=== PATIENT | female | born 1970 ===

== ENCOUNTER 2021-10-24 05:15 | Inpatient (IN) | payer BC, OTHER ==
[~2021-10-24] VITALS: Ht 170.2 cm; Wt 96.4 kg
[2021-10-24 08:42] LABS: Basophils # (auto) 0 10 ^3/uL (0-0.2); Basophils % (auto) 0.2 % (0.0-2.0); Eosinophils # (auto) 0.1 10 ^3/uL (0-0.8); Eosinophils % (auto) 0.8 % (0.0-7.0); Hematocrit 43.4 % (36.0-46.0); Hemoglobin 13.9 g/dL (12.2-16.2); Lymphocytes # (auto) 0.3 10 ^3/uL (0.4-5.4); Lymphocytes % (auto) 3.7 % (10.0-50.0); Mean Corpuscular Hemoglobin 29.4 pg (28.0-32.0); Mean Corpuscular Volume 91.9 fL (80.0-100.0); Monocytes # (auto) 0.3 10 ^3/uL (0-1.3); Monocytes % (auto) 4.4 % (0.0-12.0); Neutrophils # (auto) 6.5 10 ^3/uL (1.6-8.6); Neutrophils % (auto) 90.9 % (37.0-80.0); Red Blood Cells 4.72 10^6/uL (4.0-5.20); Red Cell Distribution Width 13.9 % (11.8-14.3); White Blood Cell 7.2 10^3/uL (4.4-10.8)
[2021-10-24 08:52] LABS: Albumin 3.6 g/dL (3.4-5.0); Calcium 8.3 mg/dL (8.5-10.1); Magnesium 2.9 mg/dL (1.6-2.6); Potassium 3.8 mmol/L (3.5-5.1)
[2021-10-24 08:58] LABS: BUN/Creatinine Ratio 33.8; Bilirubin, Total 0.5 mg/dL (0.2-1.0); Total Protein 6.4 g/dL (6.4-8.2)
[2021-10-24] MEDS ORDERED: HYDROmorphone HCL 2 MG/ML VL IV ONE (12:00)
[2021-10-24] MEDS ORDERED: AZITHROMYCIN 500MG/ 250ML 250 ML IV ONE (13:30)
[2021-10-24] MEDS ORDERED: cefTRIAXone 1GM/50ML D5W 50 ML IV ONE (13:30)
[2021-10-24 14:13] LABS: Urine Bacteria FEW /hpf (None Seen); Urine Blood Negative /uL (Negative); Urine Mucus FEW (None Seen); Urine WBC 28 /hpf (0 - 5)
[2021-10-24] MEDS ORDERED: MORPHINE SULFATE INJECTION 2 MG/ML SYRG IV PRN (14:15)
[2021-10-24] MEDS ORDERED: NITROGLYCERIN 0.4 MG SL TAB SL PRN (14:15)
[2021-10-24] MEDS ORDERED: PIPERACILLIN-TAZOB 3.375GM 100 ML IV ONE (14:15)
[2021-10-24] MEDS ORDERED: ACETAMINOPHEN 500 MG TAB PO PRN (14:45)
[2021-10-24] MEDS ORDERED: LACTULOSE 20Gm/30ML SOLN PO PRN (14:45)
[2021-10-24] MEDS ORDERED: TEMAZEPAM 15 MG CAP PO PRN (14:45)
[2021-10-24] MEDS ORDERED: PROMETHAZINE HCL 25 MG/ML 1ML IV PRN (14:45)
[2021-10-24] MEDS ORDERED: traMADol HCL 50 MG TAB PO PRN (14:45)
[2021-10-24] MEDS ORDERED: ALBUTEROL SULF 2.5 MG/0.5ML(0.5%) NEB SOLN NEB PRN (14:45)
[2021-10-24] MEDS ORDERED: BUDESONIDE (INHALATION) 0.5 MG/2 ML NEB NEB ONE (16:30)
[2021-10-24] MEDS: SODIUM CHLORIDE 0.9% 1,000 ML IV SCH (18:14)
[2021-10-24] MEDS: ALBUTEROL SULF 2.5 MG/0.5ML(0.5%) NEB SOLN NEB SCH (19:25)
[2021-10-24] MEDS: IPRATROPIUM BROM 0.5 MG/2.5ML INH SOL NEB SCH (19:25)
[2021-10-24] MEDS: LINEZOLID 600MG/300ML 300 ML IV SCH (20:30)
[2021-10-24] MEDS ORDERED: BUDESONIDE (INHALATION) 180 MCG IH IN SCH (22:00)
[2021-10-24 22:33] VITALS: BP 98/69
[2021-10-24] MEDS: PIPERACILLIN-TAZOB 3.375GM 100 ML IV SCH (22:49)
[2021-10-25] MEDS ORDERED: BUPR300T28 PO (00:58)
[2021-10-25] MEDS ORDERED: ALBU108A5 INH (00:58)
[2021-10-25] MEDS ORDERED: TRAZ-184 PO (00:58)
[2021-10-25] MEDS ORDERED: LEFL10TA17 PO (00:58)
[2021-10-25] MEDS ORDERED: FLUT1AER5 PO (00:58)
[2021-10-25] MEDS ORDERED: GALC120I SC (00:58)
[2021-10-25] MEDS ORDERED: DALF10TA3 PO (00:58)
[2021-10-25] MEDS ORDERED: CALC0.5C PO (00:58)
[2021-10-25] MEDS ORDERED: PHEN-1325 (00:58)
[2021-10-25] MEDS ORDERED: ATOR10TA52 PO (00:58)
[2021-10-25] MEDS ORDERED: ESCI-34 PO (00:58)
[2021-10-25] MEDS ORDERED: RIME75TA PO (00:58)
[2021-10-25] MEDS ORDERED: MYCO500T3 PO (00:58)
[2021-10-25] MEDS ORDERED: MIRA50TA PO (00:58)
[2021-10-25] MEDS ORDERED: TAPE200T PO (00:58)
[2021-10-25] MEDS ORDERED: PRE1T PO (00:58)
[2021-10-25] MEDS ORDERED: PANT40T PO (00:58)
[2021-10-25] MEDS ORDERED: PREG-111 PO (00:58)
[2021-10-25] MEDS ORDERED: CLON-853 PO (00:58)
[2021-10-25] MEDS ORDERED: FOLI1TAB6 PO (00:58)
[2021-10-25] MEDS: SODIUM CHLORIDE 0.9% 1,000 ML IV SCH ×2 (04:05→18:36)
[2021-10-25 05:16] VITALS: BP 95/66
[2021-10-25] MEDS: LINEZOLID 600MG/300ML 300 ML IV SCH ×2 (06:19→18:36)
[2021-10-25] MEDS: PIPERACILLIN-TAZOB 3.375GM 100 ML IV SCH ×3 (06:21→22:24)
[2021-10-25] MEDS: ALBUTEROL SULF 2.5 MG/0.5ML(0.5%) NEB SOLN NEB SCH ×4 (08:23→19:20)
[2021-10-25] MEDS: IPRATROPIUM BROM 0.5 MG/2.5ML INH SOL NEB SCH ×4 (08:23→19:20)
[2021-10-25 09:45] VITALS: BP 106/73
[2021-10-25] MEDS: predniSONE 1 MG TAB PO SCH (11:01)
[2021-10-25] MEDS: ASCORBIC ACID 1,000 MG TAB PO SCH (11:01)
[2021-10-25] MEDS: CHOLECALCIFEROL (VITD3) 2,000 UNIT CAP/TAB PO SCH (11:01)
[2021-10-25] MEDS: ZINC SULFATE 220mg CAP or TAB PO SCH (11:01)
[2021-10-25] MEDS: AZITHROMYCIN 500MG/ 250ML 250 ML IV SCH (11:01)
[2021-10-25] MEDS: ENOXAPARIN SOD 40 MG/0.4 ML SYRINGE SC SCH (11:01)
[2021-10-25 12:33] VITALS: BP 107/70
[2021-10-25] MEDS ORDERED: FOLIC ACID 1 MG TAB PO ONE (16:00)
[2021-10-25] MEDS ORDERED: CALCITRIOL 0.25 MCG CAP PO ONE (16:00)
[2021-10-25] MEDS ORDERED: PREGABALIN CAPSULE 75 MG CAP PO ONE (16:00)
[2021-10-25 16:26] VITALS: BP 102/66
[2021-10-25] MEDS: buPROPion HCL 75 MG TAB PO SCH (18:37)
[2021-10-25 21:13] VITALS: BP 117/78
[2021-10-25] MEDS: DALFAMPRIDINE 10 MG PO SCH (22:24)
[2021-10-25] MEDS: SALMETEROL IN SCH (22:24)
[2021-10-25] MEDS: FLUTICASONE PROPIONATE IN SCH (22:24)
[2021-10-25] MEDS: TAPENTADOL HCL 200 MG PO SCH (22:25)
[2021-10-25] MEDS: traZODone HCL 50 MG TAB PO SCH (22:25)
[2021-10-25] MEDS: PREGABALIN CAPSULE 75 MG CAP PO SCH (22:25)
[2021-10-25] MEDS: MYCOPHENOLATE 500 MG TAB PO SCH (22:25)
[2021-10-25] MEDS: ATORVASTATIN 20 MG TAB PO SCH (22:25)
[2021-10-26] MEDS: LINEZOLID 600MG/300ML 300 ML IV SCH ×2 (04:57→18:18)
[2021-10-26 05:11] VITALS: BP 96/60
[2021-10-26] MEDS: PREGABALIN CAPSULE 75 MG CAP PO SCH ×3 (05:11→22:13)
[2021-10-26] MEDS: PIPERACILLIN-TAZOB 3.375GM 100 ML IV SCH ×3 (06:08→22:11)
[2021-10-26] MEDS: SODIUM CHLORIDE 0.9% 1,000 ML IV SCH (06:08)
[2021-10-26] MEDS: IPRATROPIUM BROM 0.5 MG/2.5ML INH SOL NEB SCH ×4 (06:25→18:43)
[2021-10-26] MEDS: ALBUTEROL SULF 2.5 MG/0.5ML(0.5%) NEB SOLN NEB SCH ×4 (06:25→18:43)
[2021-10-26] MEDS: buPROPion HCL 75 MG TAB PO SCH ×2 (06:29→18:18)
[2021-10-26 06:33] LABS: Basophils # (auto) 0 10 ^3/uL (0-0.2); Basophils % (auto) 0.4 % (0.0-2.0); Eosinophils # (auto) 0.1 10 ^3/uL (0-0.8); Eosinophils % (auto) 2.3 % (0.0-7.0); Hematocrit 35.3 % (36.0-46.0); Hemoglobin 11.5 g/dL (12.2-16.2); Lymphocytes # (auto) 0.5 10 ^3/uL (0.4-5.4); Mean Corpuscular Hemoglobin 29.8 pg (28.0-32.0); Mean Corpuscular Hgb Conc. 32.6 g/dL (32.0-36.0); Mean Corpuscular Volume 91.7 fL (80.0-100.0); Monocytes # (auto) 0.3 10 ^3/uL (0-1.3); Monocytes % (auto) 8.8 % (0.0-12.0); Neutrophils # (auto) 2.7 10 ^3/uL (1.6-8.6); Neutrophils % (auto) 74.5 % (37.0-80.0); Red Blood Cells 3.85 10^6/uL (4.0-5.20); Red Cell Distribution Width 13.9 % (11.8-14.3); White Blood Cell 3.6 10^3/uL (4.4-10.8)
[2021-10-26 09:00] VITALS: BP 111/76
[2021-10-26] MEDS: FLUTICASONE PROPIONATE IN SCH ×2 (10:00→22:10)
[2021-10-26] MEDS ORDERED: DALFAMPRIDINE 10 MG PO SCH (10:00)
[2021-10-26] MEDS: SALMETEROL IN SCH ×2 (10:00→22:10)
[2021-10-26] MEDS ORDERED: HYDROcodone-ACET 7.5/325MG TAB PO PRN (10:15)
[2021-10-26] MEDS ORDERED: clonazePAM 0.5 MG TAB PO PRN (10:15)
[2021-10-26] MEDS: AZITHROMYCIN 500MG/ 250ML 250 ML IV SCH (12:28)
[2021-10-26] MEDS: DALFAMPRIDINE 10 MG PO SCH ×2 (12:29→22:11)
[2021-10-26] MEDS: ESCITALOPRAM OXALATE 20 MG PO SCH (12:29)
[2021-10-26] MEDS: FOLIC ACID 1 MG TAB PO SCH (12:29)
[2021-10-26] MEDS: LEFLUNOMIDE 10 MG PO SCH (12:29)
[2021-10-26] MEDS: ZINC SULFATE 220mg CAP or TAB PO SCH (12:30)
[2021-10-26] MEDS: CALCITRIOL 0.25 MCG CAP PO SCH (12:30)
[2021-10-26] MEDS: predniSONE 1 MG TAB PO SCH (12:30)
[2021-10-26] MEDS: MYCOPHENOLATE 500 MG TAB PO SCH ×2 (12:30→22:12)
[2021-10-26] MEDS: CHOLECALCIFEROL (VITD3) 2,000 UNIT CAP/TAB PO SCH (12:30)
[2021-10-26] MEDS: ASCORBIC ACID 1,000 MG TAB PO SCH (12:30)
[2021-10-26] MEDS: ENOXAPARIN SOD 40 MG/0.4 ML SYRINGE SC SCH (12:31)
[2021-10-26 13:00] VITALS: BP 100/69
[2021-10-26] MEDS: TAPENTADOL HCL 200 MG PO SCH ×2 (13:14→22:12)
[2021-10-26] MEDS: MIRABEGRON 50 MG PO SCH (13:14)
[2021-10-26 16:55] VITALS: BP 109/73
[2021-10-26 22:02] VITALS: BP 103/72
[2021-10-26] MEDS: traZODone HCL 50 MG TAB PO SCH (22:12)
[2021-10-26] MEDS: ATORVASTATIN 20 MG TAB PO SCH (22:13)
[2021-10-27] MEDS: SODIUM CHLORIDE 0.9% 1,000 ML IV SCH ×2 (00:43→09:36)
[2021-10-27 05:05] VITALS: BP 91/59
[2021-10-27] MEDS: PIPERACILLIN-TAZOB 3.375GM 100 ML IV SCH ×2 (05:35→14:00)
[2021-10-27] MEDS: LINEZOLID 600MG/300ML 300 ML IV SCH (05:36)
[2021-10-27] MEDS: buPROPion HCL 75 MG TAB PO SCH (05:36)
[2021-10-27] MEDS: PREGABALIN CAPSULE 75 MG CAP PO SCH ×2 (05:36→14:00)
[2021-10-27] MEDS: IPRATROPIUM BROM 0.5 MG/2.5ML INH SOL NEB SCH ×3 (07:14→11:42)
[2021-10-27] MEDS: ALBUTEROL SULF 2.5 MG/0.5ML(0.5%) NEB SOLN NEB SCH ×3 (07:14→11:42)
[2021-10-27 09:13] VITALS: BP 120/78
[2021-10-27] MEDS: AZITHROMYCIN 500MG/ 250ML 250 ML IV SCH (09:36)
[2021-10-27] MEDS: SALMETEROL IN SCH (09:36)
[2021-10-27] MEDS: FLUTICASONE PROPIONATE IN SCH (09:36)
[2021-10-27] MEDS: MIRABEGRON 50 MG PO SCH (09:37)
[2021-10-27] MEDS: TAPENTADOL HCL 200 MG PO SCH (09:37)
[2021-10-27] MEDS: FOLIC ACID 1 MG TAB PO SCH (09:37)
[2021-10-27] MEDS: ESCITALOPRAM OXALATE 20 MG PO SCH (09:37)
[2021-10-27] MEDS: DALFAMPRIDINE 10 MG PO SCH (09:37)
[2021-10-27] MEDS: LEFLUNOMIDE 10 MG PO SCH (09:37)
[2021-10-27] MEDS: predniSONE 1 MG TAB PO SCH (09:37)
[2021-10-27] MEDS: CHOLECALCIFEROL (VITD3) 2,000 UNIT CAP/TAB PO SCH (09:38)
[2021-10-27] MEDS: CALCITRIOL 0.25 MCG CAP PO SCH (09:38)
[2021-10-27] MEDS: ZINC SULFATE 220mg CAP or TAB PO SCH (09:38)
[2021-10-27] MEDS: ASCORBIC ACID 1,000 MG TAB PO SCH (09:38)
[2021-10-27] MEDS: ENOXAPARIN SOD 40 MG/0.4 ML SYRINGE SC SCH (09:39)
[2021-10-27] MEDS ORDERED: MYCOPHENOLATE 500 MG TAB PO SCH (10:00)
[2021-10-27] MEDS ORDERED: AZIT500T66 PO (10:45)
[2021-10-27 11:41] VITALS: BP 120/78
[2021-10-27 12:18] VITALS: BP 112/72
[2021-10-27] MEDS ORDERED: PANTOPRAZOLE 40 MG TAB PO SCH (22:00)
== END 2021-10-27 14:44 | disposition home or self-care (01) | DRG 193 ==
LOC: ER 05:15 → EDBD 05:15 → TELE 14:08 → TELE-CENTR 22:00
PROVIDERS: ADMIT Internal Medicine; ATTEND Family Medicine
DX: J18.9 Pneumonia, unspecified organism (principal); J96.01 Acute respiratory failure with hypoxia; R04.2 Hemoptysis; N39.0 Urinary tract infection, site not specified; D84.9 Immunodeficiency, unspecified; G35 Multiple sclerosis; M05.9 Rheumatoid arthritis with rheumatoid factor, unspecified; D63.8 Anemia in other chronic diseases classified elsewhere; M35.00 Sjogren syndrome, unspecified; M79.7 Fibromyalgia; M81.0 Age-related osteoporosis without current pathological fracture; E66.9 Obesity, unspecified; Z96.659 Presence of unspecified artificial knee joint; Z20.822 Contact with and (suspected) exposure to COVID-19; M19.90 Unspecified osteoarthritis, unspecified site; I70.90 Unspecified atherosclerosis; Z98.84 Bariatric surgery status; Z68.33 Body mass index [BMI] 33.0-33.9, adult; Z90.49 Acquired absence of other specified parts of digestive tract; Z88.5 Allergy status to narcotic agent
CPT/HCPCS: 36415; 71045; 71046; 80053; 81001; 83735; 84484; 85025; 85379; 87040; 87070; 87205; 87426; 93005; 93970; 94640; 96365; 96367; 96368; G0378; J0696; J2543; J7517

== ENCOUNTER 2021-11-14 13:30 | Emergency (ER) | payer BC ==
[~2021-11-14] VITALS: Ht 160 cm; Wt 68.0 kg
[~2021-11-14 13:30] MED LIST: ALBU108A5 INH; ATOR10TA52 PO; AZIT500T66 PO; BUPR300T28 PO; CALC0.5C PO; CLON-853 PO; DALF10TA3 PO; ESCI-34 PO; FLUT1AER5 PO; FOLI1TAB6 PO; GALC120I SC; LEFL10TA17 PO; MIRA50TA PO; MYCO500T3 PO; PANT40T PO; PHEN-1325; PRE1T PO; PREG-111 PO; RIME75TA PO; TAPE200T PO; TRAZ-184 PO
[2021-11-14 14:14] VITALS: BP 148/101
[2021-11-14] MEDS ORDERED: HYDROcodone-ACET 5/325MG TAB PO ONE (14:45)
== END 2021-11-14 15:00 | disposition home or self-care (01) ==
LOC: ER 13:30
DX: S52.502A Unspecified fracture of the lower end of left radius, initial encounter for closed fracture (principal); S01.81XA Laceration without foreign body of other part of head, initial encounter; Z88.6 Allergy status to analgesic agent; Z79.899 Other long term (current) drug therapy; Z90.49 Acquired absence of other specified parts of digestive tract; Z90.89 Acquired absence of other organs; Z90.710 Acquired absence of both cervix and uterus; W01.0XXA Fall on same level from slipping, tripping and stumbling without subsequent striking against object, initial encounter; Y93.89 Activity, other specified; Y92.89 Other specified places as the place of occurrence of the external cause; Y99.8 Other external cause status
CPT/HCPCS: 12011; 29125; 70450; 73110